=== PATIENT | male | born 1980 | race Caucasian/White ===

== ENCOUNTER 2017-10-05 15:13 | Emergency (ER) | payer SELFPAY ==
[~2017-10-05] VITALS: Ht 170.2 cm; Wt 111.0 kg
[2017-10-05] MEDS ORDERED: KETOROLAC 30MG/ML VIAL IV STA (17:25)
[2017-10-05 17:56] LABS: PROTHROMBIN TIME 10.7 sec (9.4-11.6)
[2017-10-05 17:57] LABS: CHLORIDE 106 mEq/L (98-107)
[2017-10-05] MEDS ORDERED: FAMOTIDINE 20MG/2ML VIAL IV ONE (18:00)
[2017-10-05 18:02] LABS: BASOPHILS % 0.6 % (0.0-2.0); EOSINOPHILS % 2.5 % (0.0-5.0); HEMATOCRIT. 43.8 % (42.0-52.0); HEMOGLOBIN. 14.7 g/dL (14.0-18.0); LYMPHOCYTES % 38.6 % (20.0-50.0); MEAN CORPUSCULAR HEMOGLOBIN 27.5 pg (28.0-32.0); MEAN CORPUSCULAR VOLUME 81.9 fL (80.0-94.0); MEAN PLATELET VOLUME 9.6 fl (7.4-10.4); MONOCYTES % 9.4 % (2.0-8.0); NEUTROPHILS % 48.9 % (40.0-76.0); PLATELET 221 x1000/uL (130-400); RED BLOOD CELL COUNT 5.35 mill/uL (4.7-6.1)
[2017-10-05 18:05] LABS: TROPONIN I < 0.02 ng/mL (0.00-0.04)
[2017-10-05 19:17] VITALS: BP 123/74
[2017-10-05 19:38] LABS: CLARITY URINE CLEAR (CLEAR); COLOR URINE YELLOW (YELLOW); KETONES URINE NEGATIVE (NEGATIVE); LEUKOCYTE ESTERASE URINE NEGATIVE (NEGATIVE); NITRITE URINE NEGATIVE (NEGATIVE); OCCULT BLOOD URINE NEGATIVE (NEGATIVE); PH URINE 5.5 (4.5-8.0); PROTEIN URINE NEGATIVE (NEGATIVE); SPECIFIC GRAVITY URINE 1.037 (1.005-1.030)
== END 2017-10-05 19:35 | disposition home or self-care (01) ==
LOC: ER 15:13
DX: R07.9 Chest pain, unspecified (principal); R10.12 Left upper quadrant pain; R20.0 Anesthesia of skin
CPT/HCPCS: 36415; 80053; 81001; 83690; 84484; 85025; 85610; 93005; 96374; 96375; 99285; J1885; J3490

== ENCOUNTER 2018-11-12 17:53 | Emergency (ER) | payer SELFPAY ==
[~2018-11-12] VITALS: Ht 170.2 cm; Wt 91.0 kg
[2018-11-12 18:09] VITALS: BP 151/81
== END 2018-11-13 00:15 | disposition left against medical advice (07) ==
LOC: ER 17:53
DX: Z53.21 Procedure and treatment not carried out due to patient leaving prior to being seen by health care provider (principal)